=== PATIENT | male | born 1980 | race Caucasian/White ===

== ENCOUNTER → 2021-09-08 | Emergency (ER) | payer SELFPAY ==
[~2021-09-08] MED LIST: IBUPROFEN600 MG PO
== END | disposition home or self-care (01) ==
LOC: ER1 03:00
DX: S83.92XA Sprain of unspecified site of left knee, initial encounter (principal); I10 Essential (primary) hypertension; F17.210 Nicotine dependence, cigarettes, uncomplicated; W01.0XXA Fall on same level from slipping, tripping and stumbling without subsequent striking against object, initial encounter; Y99.0 Civilian activity done for income or pay
CPT/HCPCS: 73564; 99283